=== PATIENT | female | born 1980 | race Hispanic/Latino ===

== ENCOUNTER 2016-07-15 04:32 | Emergency (ER) | payer MEDICAID ==
[2016-07-15 05:20] LABS: Basophils % (Auto) 0.2 % (0.0-1.8); Eosinophils % (Auto) 0.9 % (0.0-4.3); Hematocrit 31.1 % (30.3-42.9); Hemoglobin 10.4 gm/dl (10.1-14.3); Mean Corpuscular HGB Conc 34 % (30-34); Mean Corpuscular Hemoglobin 32 pg (28-32); Mean Corpuscular Volume 95 fl (79-97); Platelet Count 428 K/mm3 (140-440); Red Blood Count 3.26 M/mm3 (3.65-5.03); Red Cell Distribution Width 14.3 % (13.2-15.2); White Blood Count 11.5 K/mm3 (4.5-11.0)
[2016-07-15 05:40] LABS: Anion Gap 17 mmol/L; Blood Urea Nitrogen 5 mg/dL (7-17); Calcium 9.6 mg/dL (8.4-10.2); Carbon Dioxide 24 mmol/L (22-30); Chloride 99.1 mmol/L (98-107); Glucose 92 mg/dL (65-100); Potassium 3.8 mmol/L (3.6-5.0); Sodium 136 mmol/L (137-145)
[2016-07-15 06:18] LABS: Bacteria,Urine 1+ /HPF (Negative); Bilirubin,Urine NEG (Negative); Blood,Urine SM (Negative); Ketones,Urine NEG (Negative); Leukocyte Esterase,Urine MOD (Negative); Nitrite,Urine NEG (Negative); Protein,Urine <15 mg/dL mg/dL (Negative); Urobilinogen,Urine < 2.0 mg/dL (<2.0)
[2016-07-15] MEDS ORDERED: NORCO 5/325 PO ONE (12:17)
--- NOTE | 2016-07-15 12:19 | Emergency Department Report ---
HPI - General Chief Complaint: Headache Time Seen by Provider: 07/15/16 11:56 - HPI HPI: Chief complaint: Jaw and face pain HPI: Patient states yesterday she began having pain to her right lower molar radiating down into her neck and up into her episcopalian area. Patient also has plain to right maxillary sinus area. She describes it as sharp and is worse with eating and moving her jaw loss. No fever or swelling is noted. Patient is 31 weeks and has osteogenesis imperfecta. Patient denies fever, nausea, vomiting or diarrhea. Patient denies upper respiratory infection symptoms and no vaginal bleeding or discharge. Patient states that the seems fine and she can feel the baby moving. Mode of arrival: private car Source: Patient Began: Yesterday Duration: Worsened during the night Context: History of problems with her teeth secondary to her osteogenesis imperfecta and has multiple missing teeth that had to be pulled. Quality: Sharp Severity: 10 out of 10 Improved with: Patient states she's been taking Tylenol every 4 hours with no relief. She took 2 Naprosyn with slight relief. Worsened with: Chewing Associated signs and symptoms: See above ED Past Medical Hx - Past Medical History Previous Medical History?: Yes Hx Renal Disease: Yes (kidney stones) Hx Kidney Stones: Yes Additional medical history: anemia. osteogenesis imperfecta - Surgical History Additional Surgical History: kidney stents - Social History Smoking Status: Former Smoker Substance Use Type: None - Medications Home Medications: Home Medications Medication Instructions Recorded Confirmed Last Taken Type ALPRAZolam [Xanax TAB] 1 mg PO PRN 01/19/14 01/19/14 01/18/14 History Cefuroxime Axetil [Ceftin] 500 mg PO Q12H #14 tablet 01/21/14 Unknown Rx Cyclobenzaprine [Flexeril 10 MG 10 mg PO TID PRN #30 tablet 01/21/14 Unknown Rx TAB] medroxyPROGESTERone ACETATE 10 mg PO QDAY #10 tablet 12/26/15 Unknown Rx [Provera] Amoxicillin [Trimox CAP] 500 mg PO Q8H #30 capsule 07/15/16 Unknown Rx HYDROcodone/APAP 10-325 [[place] 1 each PO Q6HR PRN #10 tablet 07/15/16 Unknown Rx 10/325] ED Review of Systems ROS: Stated complaint: TOOTHACHE/BYRD Other details as noted in HPI ROS Constitutional: No fever ENT: No uri symptoms Cardiovascular: No chest pain Respiratory: No sob or cough GI: No nausea vomiting or diarrhea : No dysuria frequency or urgency, Skin: No rash Neuro: No focal weakness or numbness Psych: No depression Andrey/lymph: No edema Physical Exam - Physical Exam Vital Signs: Vital Signs 07/15/16 04:43 Temperature 97.9 F Pulse Rate 76 Blood Pressure 115/80 O2 Sat by Pulse 95 Oximetry Physical Exam: GENERAL: The patient is well-developed well-nourished . HEENT: Normocephalic. Atraumatic. Extraocular motions are intact. Patient has moist mucous membranes. Multiple missing teeth. Tender right only remaining molar in the lower jaw that reproduces pain. Tender to the right maxillary sinus but not the right temporal. No sinus drainage. Blue tinged sclera NECK: Supple. No meningitic signs are noted. There is no adenopathy noted. CHEST/LUNGS: Clear to auscultation. There is no respiratory distress noted. HEART/CARDIOVASCULAR: Regular. There is no tachycardia. There is no gallop rub or murmur. ABDOMEN: Abdomen is soft, nontender. Patient has normal bowel sounds. There is no abdominal distention. SKIN: There is no rash. There is no edema. There is no diaphoresis. NEURO: The patient is awake, alert, and oriented. The patient is cooperative. The patient has no focal neurologic deficits. The patient has normal speech. MUSCULOSKELETAL: There is no or deformity. There is no limitation range of motion. There is no evidence of acute injury. ED Course Vital Signs 07/15/16 04:43 Temperature 97.9 F Pulse Rate 76 Blood Pressure 115/80 O2 Sat by Pulse 95 Oximetry - Reevaluation(s) Reevaluation #1: 07/15/16 Patient given a [place] 5 here in the emergency department and encouraged follow- up with her dentist as soon as possible. ED Medical Decision Making - Lab Data Result diagrams: 07/15/16 05:10 07/15/16 05:10 Laboratory Tests 07/15/16 Unknown Ur Leukocyte Esterase Mod Urine WBC (Auto) 33.0 H Urine RBC (Auto) 2.0 U Epithel Cells (Auto) < 1.0 Critical care attestation.: If time is entered above; I have spent that time in minutes in the direct care of this critically ill patient, excluding procedure time. ED Disposition Clinical Impression: Toothache Urinary tract infection Qualifiers: Urinary tract infection type: acute cystitis Hematuria presence: without hematuria Qualified Code(s): N30.00 - Acute cystitis without hematuria Disposition: DISCHARGED TO HOME OR SELFCARE Is pt being admited?: No Does the pt Need Aspirin: No Condition: Stable Instructions: Urinary Tract Infection in Women (ED), Toothache (ED) Prescriptions: Amoxicillin [Trimox CAP] 500 mg PO Q8H #30 capsule HYDROcodone/APAP 10-325 [[place] 10/325] 1 each PO Q6HR PRN #10 tablet PRN Reason: Pain Referrals: follow-up, your dentist [Other] - 2-3 Days DARRELL FELICIANO MD [Staff Physician] - 2-3 Days Time of Disposition: 12:17
[2016-07-15 12:46] VITALS: BP 118/74
== END 2016-07-15 12:40 | disposition home or self-care (01) ==
LOC: ED 04:32
DX: O23.43 Unspecified infection of urinary tract in pregnancy, third trimester (principal); N30.00 Acute cystitis without hematuria; K08.89 Other specified disorders of teeth and supporting structures; D64.9 Anemia, unspecified; Z87.891 Personal history of nicotine dependence; Z3A.31 31 weeks gestation of pregnancy
CPT/HCPCS: 36415; 80048; 81001; 81025; 85025; 99283

== ENCOUNTER 2016-09-09 19:45 | Outpatient (CLI) | payer MEDICAID ==
[2016-09-09] MEDS ORDERED: LACTATED RINGERS 1,000 ML IV SCH (21:00)
[2016-09-09 21:04] VITALS: BP 125/63
[2016-09-09] MEDS ORDERED: BRETHINE IVP ONE (21:17)
[2016-09-09] MEDS ORDERED: PEPCID PO SCH (22:10)
[2016-09-09] MEDS ORDERED: VISTARIL PO ONE (22:50)
[2016-09-09] MEDS ORDERED: PEPCID PO ONE (23:00)
== END 2016-09-09 23:16 | disposition home or self-care (01) ==
LOC: TRG 19:45
PROVIDERS: ATTEND Obstetrics & Gynecology
DX: O09.523 Supervision of elderly multigravida, third trimester (principal); Z3A.38 38 weeks gestation of pregnancy
CPT/HCPCS: 59025; J3105; J7120; Q0177

== ENCOUNTER 2016-09-15 04:15 | Outpatient (CLI) | payer MEDICAID ==
[~2016-09-15 04:15] MED LIST: LACTATED RINGERS 1,000 ML ONE
[2016-09-15] MEDS ORDERED: SUBLIMAZE IV ONE (04:59)
[2016-09-15] MEDS ORDERED: LACTATED RINGERS 1,000 ML IV SCH (05:00)
[2016-09-15 06:16] VITALS: BP 113/77
== END 2016-09-15 06:30 | disposition home or self-care (01) ==
LOC: TRG 04:15
PROVIDERS: ATTEND Obstetrics & Gynecology
DX: O09.523 Supervision of elderly multigravida, third trimester (principal); Z3A.39 39 weeks gestation of pregnancy
CPT/HCPCS: 59025; 96360; 96361; 96374; J3010; J7120

== ENCOUNTER 2016-09-16 08:30 | Inpatient (IN) | payer MEDICAID ==
[2016-09-16] MEDS ORDERED: BICITRA PO ONE (09:27)
[2016-09-16] MEDS ORDERED: PEPCID IV ONE (09:27)
[2016-09-16] MEDS ORDERED: REGLAN IV ONE (09:27)
--- NOTE | 2016-09-16 09:40 | Anesthesia Day of Surgery ---
Anesthesia Day of Surgery - Day of Surgery Patient Examined: Yes Patient H&P Reviewed: Yes Patient is NPO: Yes
--- NOTE | 2016-09-16 09:40 | Anesthesia Consultation ---
Anesthesia Consult and Med Hx Date of service: 09/16/16 - Airway Anesthetic Teeth Evaluation: Good ROM Head & Neck: Adequate Mental/Hyoid Distance: Adequate Mallampati Class: Class II Intubation Access Assessment: Probably Good - Pulmonary Exam CTA: Yes - Cardiac Exam Cardiac Exam: RRR - Pre-Operative Health Status ASA Pre-Surgery Classification: ASA2 Proposed Anesthetic Plan: Spinal - Pulmonary Hx Asthma: No COPD: No Hx Pneumonia: No - Cardiovascular System Hx Hypertension: No - Central Nervous System Hx Seizures: No Hx Psychiatric Problems: Yes (anxiety/depressive disorder) - Endocrine Hx Renal Disease: Yes (kidney surgery- ; kidney stones) Hx End Stage Renal Disease: No Hx Hypothyroidism: No Hx Hyperthyroidism: No - Hematic Hx Anemia: Yes Hx Sickle Cell Disease: No - Other Systems Hx Alcohol Use: No Hx Substance Use: Yes
[2016-09-16] MEDS ORDERED: PITOCin 20 UNIT in NACL 0.9% 1000 ML 998 ML IV SCH (10:00)
[2016-09-16] MEDS ORDERED: PITOCin/NS 20 UNIT/1000ML DRIP 20,000 MILLIUNITS/1,000 ML BAG IV ONE (10:00)
[2016-09-16] MEDS ORDERED: LACTATED RINGERS 1,000 ML IV SCH (10:00)
[2016-09-16] MEDS ORDERED: ANCEF/STERILE WATER 2 GM/20 ML 2 GM/20 ML SYRINGE IV ONE (10:01)
[2016-09-16] MEDS ORDERED: ceFAZolin 2 GM in NACL 0.9% 100 ML IV ONE (10:02)
[2016-09-16 10:05] LABS: Basophils % (Auto) 0.7 % (0.0-1.8); Eosinophils % (Auto) 0.5 % (0.0-4.3); Hematocrit 34.7 % (30.3-42.9); Hemoglobin 11.6 gm/dl (10.1-14.3); Mean Corpuscular HGB Conc 34 % (30-34); Mean Corpuscular Hemoglobin 32 pg (28-32); Mean Corpuscular Volume 96 fl (79-97); Platelet Count 353 K/mm3 (140-440); Red Blood Count 3.62 M/mm3 (3.65-5.03); Red Cell Distribution Width 15.4 % (13.2-15.2); White Blood Count 13.2 K/mm3 (4.5-11.0)
[2016-09-16] MEDS ORDERED: MORPHINE ONE (10:51)
--- NOTE | 2016-09-16 11:53 | History and Physical Report ---
History of Present Illness Date of examination: 09/16/16 Date of admission: 09/16/16 09:32 Chief complaint: contractions History of present illness: 35y/o @ 38+2 weeks presents in active labor with regular contractions and cervical change. The patient has prior history of delivery. She has unwanted fertility and elects for permanent sterilization. course is complicated by findings of an with osteogenesis imperfecta. The patient initiated her care in the first trimester . is complicated by advanced maternal age and a prior delivery. Past History Past Medical History: other (osteogenesis imperfecta; depression; anxiety disorder) Past Surgical History: section, other (knee surgery) Social history: , smoking - Obstetrical History Expected Date of Delivery: 09/28/16 Actual Gestation: 38 Week(s) 2 Day(s) : 4 Para: 2 Hx # Term Pregnancies: 1 Number of Pregnancies: 1 Spontaneous Abortions: 1 Induced : 0 Number of Living Children: 2 Medications and Allergies Allergies Allergy/AdvReac Type Severity Reaction Status Date / Time steroids Allergy Mild Unknown Uncoded 09/16/16 08:42 Steroids AdvReac Intermediate Unknown Uncoded 09/16/16 09:27 Home Medications Medication Instructions Recorded Confirmed Last Taken Type ALPRAZolam [Xanax TAB] 1 mg PO PRN 01/19/14 01/19/14 01/18/14 History Cefuroxime Axetil [Ceftin] 500 mg PO Q12H #14 tablet 01/21/14 Unknown Rx Cyclobenzaprine [Flexeril 10 MG 10 mg PO TID PRN #30 tablet 01/21/14 Unknown Rx TAB] medroxyPROGESTERone ACETATE 10 mg PO QDAY #10 tablet 12/26/15 Unknown Rx [Provera] Amoxicillin [Trimox CAP] 500 mg PO Q8H #30 capsule 07/15/16 Unknown Rx HYDROcodone/APAP 10-325 [[place] 1 each PO Q6HR PRN #10 tablet 07/15/16 Unknown Rx 10/325] Active Meds: Active Medications Lactated Ringer's (Lactated Ringers) 1,000 mls @ 2,250 mls/hr IV PREOP SUSHILA Stop: 09/17/16 10:27 Last Admin: 09/16/16 09:35 Dose: 2,250 mls/hr Oxytocin 20 unit/ Sodium (Chloride) 1,000 mls @ 0 mls/hr IV TITR SUSHILA PRN Reason: As Directed Review of Systems All systems: negative Genitourinary: contractions - Vital Signs Vital signs: Vital Signs Pulse BP Pulse Ox 75 142/77 99 09/16/16 08:47 09/16/16 08:47 09/16/16 08:47 Temp Pulse Resp BP Pulse Ox 97.7 F 83 17 142/77 95 09/16/16 09:00 09/16/16 09:12 09/16/16 09:00 09/16/16 08:47 09/16/16 09:12 - Physical Exam Breasts: Positive: deferred, mass Lungs: Positive: Clear to auscultation Abdomen: Positive: normal appearance, soft Results Result Diagrams: 09/16/16 09:44 Abnormal lab results 09/16/16 Range/Units 09:44 WBC 13.2 H (4.5-11.0) K/mm3 RBC 3.62 L (3.65-5.03) M/mm3 RDW 15.4 H (13.2-15.2) % [place] # 0.9 H (0.0-0.8) K/mm3 Seg Neutrophils % 75.7 H (40.0-70.0) % Seg Neutrophils # 10.0 H (1.8-7.7) K/mm3 All other labs normal. Assessment and Plan - Patient Problems (1) Previous delivery affecting Current Visit: Yes Status: Acute Plan to address problem: proceed with a repeat delivery and BTL (2) Active labor at term Current Visit: Yes Status: Acute (3) Unwanted fertility Current Visit: Yes Status: Acute
[2016-09-16] MEDS ORDERED: ZOFRAN ONE (12:16)
[2016-09-16] MEDS ORDERED: WATER FOR IRRIG STERILE IR ONE (12:18)
[2016-09-16] MEDS ORDERED: NACL 0.9% IR ONE (12:18)
[2016-09-16] MEDS ORDERED: NACL 0.9% 1000 ML 1,000 ML ONE (13:03)
[2016-09-16] MEDS ORDERED: TYLENOL PO PRN (13:12)
[2016-09-16] MEDS ORDERED: PERCOCET 5/325 PO PRN (13:12)
[2016-09-16] MEDS ORDERED: TUCKS PAD TP PRN (13:12)
[2016-09-16] MEDS ORDERED: MILK OF MAGNESIA PO PRN (13:12)
[2016-09-16] MEDS ORDERED: NARCAN 0.4 MG/1 ML IV PRN (13:12)
[2016-09-16] MEDS ORDERED: LANSINOH TP PRN (13:12)
--- NOTE | 2016-09-16 13:15 | Procedure Note ---
OB Delivery Note - Delivery Date of Delivery: 09/16/16 Surgeon: DARRELL FELICIANO Estimated blood loss: 500cc - Section Preop diagnosis: repeat , desires sterilization Postop diagnosis: same section procedure: section, repeat low transverse, bilateral tubal ligation Disposition: PACU Complications: none - Infant A at 1 minute: 8 at 5 minutes: 9 Infant Gender: Male (weight 5 lbs. 12 oz.)
--- NOTE | 2016-09-16 13:19 | Operative Report ---
Operative Report Operative Report: Date of surgery: 09/16/2016 Preoperative diagnosis: at 38+2 weeks; prior delivery; active labor at term; undesired fertility Postoperative diagnosis: same as above Procedure: Repeat low transverse delivery and bilateral tubal ligation via [place] method Surgeon: Rebecca Ramesh M.D. Anesthesia: Regional Estimated blood loss: 500 mL Findings: Liveborn male infant with Apgars of 8 and 9 weight 5 lbs. 12 oz. Indications: 35-year-old at 38 weeks and 2 days since in active labor with cervical change and regular uterine contractions. The patient has a history of a prior delivery. Procedure: The patient was taken to the operating room and given regional anesthesia without complication. She was prepped and draped in a normal sterile fashion. A Pfannenstiel skin incision was made down to layer the fascia which was nicked in the midline extended laterally with the Bovie cautery. The superior aspect of the rectus fascia was grasped with Nica clamps x2 and the rectus muscles off sharply. This was done in inferior fashion as well. The rectus muscle midline and peritoneum entered bluntly. An Davis retractor was then inserted. A bladder blade was placed. The vesicouterine peritoneum was then entered sharply with Metzenbaum scissors. A bladder flap was created digitally. A low transverse uterine incision was then made and extended digitally. There was clear fluid upon entry into the uterine cavity. The head was delivered through the incision with fundal pressure. The cord was clamped and cut x2 and was passed off to pediatrics. The placenta was then manually extracted. The uterus was then exteriorized and cleared of clots and debris. The uterine incision was then closed in a running locked fashion with 0 Vicryl additional imbricating stitch was applied for 2 layer closure. Attention was then turned to the patient's tubes where the right tube was grasped with a [place]. The mesosalpinx was entered with the Bovie cautery and a window was created. The distal and proximal area of the ampullary tube was ligated 2 with oh plain gut. A 1 cm portion of fallopian tube was then excised. This was done on the contralateral side as well. The posterior cul-de -sac was then copiously irrigated. The uterus was replaced back into the abdomen and pelvis were the gutters were then irrigated. The Davis retractor was then removed. The peritoneum was then reapproximated with 3-0 Vicryl incorporating the rectus muscle. The fascia was then closed with 0 Vicryl in a running fashion. The skin was then reapproximated with 3-0 Monocryl on a Mariano needle subcuticular fashion. Steri-Strips to place across the incision and a Crede procedures performed at the end of the surgery. A pressure dressing was applied to the incision. The surgery productive of a liveborn male with Apgars of and 9 weight 5 lbs. 12 oz. The patient was taken to the recovery room in stable condition. All sponge laps and needle counts correct x2.
--- NOTE | 2016-09-16 13:26 | Post Anesthesia Evaluation ---
- Post Anesthesia Evaluation Patient Participated: Yes Airway Patent: Yes Stable Respiratory Function: Yes Nausea/Vomiting: No Temp > 96.8F: Yes Pain Manageable: Yes Adequeate Hydration: Yes Anesthesia Complications: No Block Receding Appropriately: Yes Patient on Ventilator: No
[2016-09-16] MEDS ORDERED: D5LR 1,000 ML IV SCH (14:00)
[2016-09-16] MEDS ORDERED: SODIUM CHLORIDE FLUSH SYRINGE 10 ML IV NR ×2 (14:00)
[2016-09-16] MEDS ORDERED: BENADRYL ONE (14:28)
[2016-09-16] MEDS: TORADOL IV PRN ×2 (14:30→21:41)
[2016-09-16] MEDS ORDERED: BENADRYL IV ONE (15:50)
[2016-09-16] MEDS ORDERED: BENADRYL IV PRN (16:42)
[2016-09-16] MEDS ORDERED: DILAUDID IV ONE (17:12)
[2016-09-16] MEDS: PERCOCET 5/325 PO PRN (21:42)
[2016-09-17 01:31] LABS: Hematocrit 29.1 % (30.3-42.9); Hemoglobin 9.8 gm/dl (10.1-14.3)
[2016-09-17] MEDS: PERCOCET 5/325 PO PRN ×4 (02:28→19:35)
[2016-09-17] MEDS: MYLICON PO PRN (02:31)
[2016-09-17] MEDS: TORADOL IV PRN (06:52)
[2016-09-17] MEDS: BENADRYL PO PRN ×2 (09:59→23:14)
--- NOTE | 2016-09-17 11:33 | Progress Note ---
Subjective Date of service: 09/17/16 Interval history: Patient doing well. Epidural removed earlier. Objective - Constitutional Vitals: Vital Signs - 12hr 09/17/16 09/17/16 09/17/16 00:00 03:42 08:32 Temperature 97.2 F L 98.1 F 98.2 F Pulse Rate [ 72 68 67 Left From Monitor] Respiratory 22 18 20 Rate Blood Pressure 95/59 104/54 96/66 [Right Arm] - Labs CBC & Chem 7: 09/17/16 00:58 Labs: Abnormal lab results 09/17/16 Range/Units 00:58 Hgb 9.8 L (10.1-14.3) gm/dl Hct 29.1 L (30.3-42.9) %
[2016-09-17] MEDS: MOTRIN PO PRN ×2 (13:39→20:00)
--- NOTE | 2016-09-17 13:48 | Progress Note ---
Assessment and Plan O: VSS AF PP H/H: 9.8/29.1 A: Stable POD #1 Asymptomatic Anemia P: Iron BID Subjective - Subjective Date of service: 09/17/16 Patient reports: appetite normal, voiding normally, pain well controlled ( poorly controlled), flatus, ambulating normally [place]: doing well, nursing well Objective - Vital Signs Latest vital signs: Vital Signs Temp Pulse Pulse Resp BP BP Pulse Ox 09/17/16 08:32 98.2 F 67 20 96/66 09/17/16 03:42 98.1 F 68 18 104/54 09/17/16 00:00 97.2 F L 72 22 95/59 09/16/16 20:30 98.5 F 67 18 114/55 09/16/16 15:00 97.8 F 64 20 129/75 09/16/16 13:58 53 L 17 109/61 99 Intake and Output 09/16/16 09/17/16 09/17/16 22:59 06:59 14:59 Intake Total 615 600 240 Output Total 400 2200 1000 Balance 215 -1600 -760 Intake: IV 375 D5lr 1,000 ml @ 125 mls/ 375 hr IV DIRECT SUSHILA Rx#: [id number] Oral 240 240 Intake, Free Water 600 Output: Urine 400 2200 1000 Indwelling Catheter 400 1200 Void 1000 1000 Other: Total, Intake Amount 240 120 Total, Output Amount 400 300 600 Voiding Method Indwelling Catheter Toilet Estimated Blood Loss 500 - Exam Breasts: Present: deferred Lungs: Present: Normal air movement Abdomen: Present: normal appearance, soft. Absent: distention, tenderness Uterus: Present: normal, firm, fundal height below umbilicus. Absent: bogginess , tenderness Extremities: Present: normal Incision: Present: normal, dry, intact, dressed (dressing removed this am and saturated with blood. New pressure dressing applied. Currently dry and intact.) - Labs Labs: Abnormal lab results 09/17/16 Range/Units 00:58 Hgb 9.8 L (10.1-14.3) gm/dl Hct 29.1 L (30.3-42.9) %
[2016-09-17] MEDS: FEOSOL PO SCH (23:13)
[2016-09-18] MEDS: MOTRIN PO PRN (04:48)
[2016-09-18] MEDS ORDERED: BOOSTRIX IM ONE (06:00)
[2016-09-18] MEDS: PERCOCET 5/325 PO PRN (09:22)
[2016-09-18] MEDS: MYLICON PO PRN (09:23)
[2016-09-18] MEDS: FEOSOL PO SCH (09:23)
--- NOTE | 2016-09-18 12:34 | Progress Note ---
Assessment and Plan POD#2 s/p Repeat c/s BTL VSS doing well no cmplaints +flatus pain well controlled rh+ no rhogam indicated d/c home today with f/u in 2 weeks for incision check Subjective - Subjective Date of service: 09/18/16 Principal diagnosis: s/p repeat c/s and BTL Patient reports: appetite normal, voiding normally, pain well controlled, flatus , ambulating normally : doing well Objective - Vital Signs Latest vital signs: Vital Signs Temp Pulse Pulse Resp Resp BP 09/18/16 09:10 98.5 F 78 18 118/68 09/18/16 06:28 18 09/18/16 04:48 20 09/18/16 01:35 98.3 F 62 20 107/63 09/17/16 19:35 18 09/17/16 16:30 98.7 F 74 20 122/61 Intake and Output 09/17/16 09/18/16 09/18/16 22:59 06:59 14:59 Intake Total 240 360 240 Output Total 400 Balance -160 360 240 Intake: Oral 240 240 Intake, Free Water 360 Output: Urine 400 Void 400 Other: Total, Intake Amount 240 240 Total, Output Amount 400 Voiding Method Toilet Toilet # Voids Void 2 1 - Exam Breasts: Present: normal Cardiovascular: Present: Regular rate, Normal S1 Lungs: Present: Clear to auscultation, Normal air movement Abdomen: Present: normal appearance, soft, normal bowel sounds. Absent: distention, tenderness, guarding Vulva: both: normal Uterus: Present: normal, firm, fundal height below umbilicus (2cm below). Absent: bogginess, tenderness Extremities: Present: normal Deep Tendon Reflex Grade: Normal +2 Incision: Present: normal, dry, intact
--- NOTE | 2016-09-18 12:43 | Discharge Summary ---
Providers - Providers Date of Admission: 09/16/16 09:32 Date of discharge: 09/18/16 Attending physician: DARRELL FELICIANO Primary care physician: IEFOMA NICOLE Hospitalization Reason for admission: active labor Procedure: section, bilateral tubal ligation, repeat low transverse Episiotomy: none Laceration: none Incision: normal, dry, intact Other procedures: tubal ligation complications: none Discharge diagnosis: IUP at term delivered [place] baby: male Condition at discharge: Good Disposition: DISCHARGED TO HOME OR SELFCARE Plan - Discharge Medications Prescriptions: Docusate Sodium [Colace] 100 mg PO BID PRN #30 capsule PRN Reason: Constipation Ferrous Sulfate [Feosol 325 MG tab] 325 mg PO BID #30 tablet Ibuprofen [Motrin] 600 mg PO Q8H PRN #60 tablet PRN Reason: Pain oxyCODONE /ACETAMINOPHEN [Percocet 5/325] 1 tab PO Q4HR #30 tab - Provider Discharge Summary Activity: no sex for 6 weeks Diet: routine Instructions: routine Additional instructions: [] Smoking cessation referral if applicable(refer to patient education folder for contact #) [] Refer to [facility] Booklet Call your doctor immediately for: * Fever > 100.5 * Heavy vaginal bleeding ( >1 pad per hour) * Severe persistent headache * Shortness of breath * Reddened, hot, painful area to leg or breast * Drainage or odor from incision. * Keep incision clean and dry at all times and follow doctor's instructions regarding bathing/showering - Follow up plan Follow up: IFEOMA NICOLE MD [Primary Care Provider] - 14 Days
[2016-09-18 13:07] VITALS: BP 129/69
== END 2016-09-18 15:00 | disposition home or self-care (01) | DRG 766 ==
LOC: TRG 08:30 → APU 09:32 → OB 15:26
PROVIDERS: ADMIT Obstetrics & Gynecology; ATTEND Obstetrics & Gynecology
PROC: 10D00Z1 Extraction of Products of Conception, Low, Open Approach (ICD-10-PCS; principal; 2016-09-16)
PROC: 0UB70ZZ Excision of Bilateral Fallopian Tubes, Open Approach (ICD-10-PCS; 2016-09-16)
PROC: 3E0234Z Introduction of Serum, Toxoid and Vaccine into Muscle, Percutaneous Approach (ICD-10-PCS; 2016-09-18)
DX: O34.211 Maternal care for low transverse scar from previous cesarean delivery (principal); O99.344 Other mental disorders complicating childbirth; F32.9 Major depressive disorder, single episode, unspecified; F41.9 Anxiety disorder, unspecified; O90.81 Anemia of the puerperium; O99.334 Smoking (tobacco) complicating childbirth; F17.200 Nicotine dependence, unspecified, uncomplicated; Z64.0 Problems related to unwanted pregnancy; Z3A.38 38 weeks gestation of pregnancy; Z37.0 Single live birth; O09.523 Supervision of elderly multigravida, third trimester; Z30.2 Encounter for sterilization; Z88.8 Allergy status to other drugs, medicaments and biological substances; Z23 Encounter for immunization
CPT/HCPCS: 36415; 85014; 85018; 85025; 86850; 86900; 86901; 88302; 90471; 90715; 99211; G0463; J0690; J1170; J1200; J1885; J2270; J2405; J2590; J2765; J7030; J7120